=== PATIENT | female | born 1970 | race American Indian/Alaskan Native ===

== ENCOUNTER 2021-08-24 06:11 | Day surgery (SDC) | payer OTHER ==
[2021-08-24] MEDS ORDERED: SODIUM CHLORIDE 0.9% 500 ML 500 ML IV SCH (07:00)
[2021-08-24 07:12] LABS: Basophils % (Auto) 0.8 % (0.0-1.8); Eosinophils # (Auto) 0.1 K/mm3 (0.0-0.4); Eosinophils % (Auto) 2.7 % (0.0-4.3); Hematocrit 41.4 % (30.3-42.9); Hemoglobin 13.6 gm/dl (10.1-14.3); Lymphocytes # (Auto) 1.8 K/mm3 (1.2-5.4); Lymphocytes % (Auto) 38.1 % (13.4-35.0); Mean Corpuscular HGB Conc 33 % (30-34); Mean Corpuscular Volume 87 fl (79-97); Monocytes # (Auto) 0.4 K/mm3 (0.0-0.8); Monocytes % (Auto) 7.3 % (0.0-7.3); Platelet Count 217 K/mm3 (140-440); Red Blood Count 4.77 M/mm3 (3.65-5.03); Red Cell Distribution Width 14.1 % (13.2-15.2)
[2021-08-24 07:19] LABS: INR 0.97 (0.87-1.13)
[2021-08-24] MEDS ORDERED: HEPARIN/NS 5000 UNIT/500ML 1,000 ML IR ONE (07:50)
[2021-08-24] MEDS ORDERED: LIDOCAINE (2%) 20 MG/1 ML VIAL 20 ML MDV INFILTRATI ONE (07:51)
[2021-08-24] MEDS ORDERED: ASPIRIN EC 325 MG TAB PO SCH (08:00)
[2021-08-24 08:01] LABS: Blood Urea Nitrogen 17 mg/dL (7-17); Calcium 9.8 mg/dL (8.4-10.2); Hemolysis Index 12
[2021-08-24 08:06] LABS: BUN/Creatinine Ratio 24
[2021-08-24] MEDS: MIDAZOLAM 2 MG/2 ML INJ ONE ×2 (08:37→08:45)
[2021-08-24] MEDS: fentaNYL 100 MCG/2 ML INJ ONE ×2 (08:37→08:45)
[2021-08-24] MEDS: VERAPAMIL 5 MG/2 ML INJ ONE ×2 (08:37→08:52)
[2021-08-24] MEDS: HEPARIN 10,000 UNITS/10 ML VIAL ONE ×2 (08:38→08:51)
--- NOTE | 2021-08-24 09:32 | Cardiac Catherization Report ---
DATE OF SERVICE: 08/24/2021 INDICATIONS: The patient is a 51-year-old -[place] female with history of hypertension, obesity, and hyperlipidemia, was having atypical chest pains, particularly at night and had a stress EKG, which was unremarkable, followed by stress nuclear imaging, which was unremarkable. Because of persistent chest pains, the patient is scheduled for cardiac catheterization for definitive diagnosis and treatment. The patient is aware of the procedure, potential complications, and alternatives of therapy available. DESCRIPTION OF PROCEDURE: The patient was brought to the catheterization laboratory in fasting condition. The patient was evaluated for moderate sedation and was felt to be an appropriate candidate for moderate sedation and received IV Versed and fentanyl. Subsequently, the patient was prepared in standard fashion. Local anesthesia was given in the right wrist area and right radial artery puncture was made using 21-gauge arterial puncture needle. Subsequently, 5-Bulgarian slender sheath was introduced. A 5-Bulgarian multipurpose catheter was used to obtain the angiograms of the left ventricle done in ROSA projection followed by using a 5-Bulgarian TIG catheter for obtaining the angiograms of the right and left coronary artery in multiple views. Coronary angiograms were obtained and subsequently catheter and sheath were removed and radial band was applied to obtain hemostasis. The patient was monitored throughout the procedure with EKG monitoring and hemodynamic and pulse oximetry monitoring. The patient at the end of the procedure is breathing normally and communicating normally with no focal deficits. The patient's moderate sedation started at 8:37 a.m. and ended at 9:09 a.m. The patient was transferred to the room in stable condition. No untoward complications were noted. The patient will be monitored for the next few hours and when stable, will be discharged home and will be continued on risk factor modification. Following findings were noted. HEMODYNAMICS: 1. Opening aortic pressure 167/99. Left ventricular pressure 173/32. No gradient across the aortic valve. Left ventriculogram done in ROAS projection using hand injection showed normal sized left ventricle with excellent contractility. There appears to be left ventricular hypertrophy with hyperdynamic left ventricle. Ejection fraction was felt to be greater than 65%. End-diastolic pressure was 32 mmHg. Mitral regurgitation could not be evaluated because of limited amount of dye injected. 2. Right coronary artery is a codominant artery, arises normally from right coronary cusp, angiographically smooth and normal, but tortuous. Similarly, left coronary artery arises normally from left coronary cusp. The left main is very short, immediately dividing into LAD and circumflex branches. Left main, LAD and its branches and circumflex artery and its branches are tortuous, but angiographically smooth and normal. FINAL IMPRESSION: 1. Normal-sized left ventricle with excellent contractility and elevated end diastolic pressure. 2. Normal coronary anatomy with tortuous arteries. 3. Procedure was uncomplicated. 4. At this time, etiology of her chest pain is not clear. Will be continued on risk factor modification. No untoward complications were noted. Findings were explained to the patient in detail. She understands. TID: [id number] RECEIPT: [id number] BOBBY/KATHIE RODRIGUEZ
[2021-08-24 12:26] VITALS: BP 131/76
--- NOTE | 2021-08-24 12:39 | Short Stay Summary ---
Short Stay Documentation Date of service: 08/24/21 - History H&P: obtained from office - Allergies and Medications Current Medications: Allergies Penicillins Allergy (Verified 08/24/21 06:50) Shortness of Breath Home Medications Medication Instructions Recorded Confirmed Last Taken Type Bisoprolol/Hydrochlorothiazide 1 tab PO DAILY 08/24/21 08/24/21 08/23/21 History [Bisoprolol-Hctz 10-6.25 mg Tab] 1 tab Simvastatin [Zocor] 5 mg PO HS 08/24/21 08/24/21 08/23/21 History 5 mg amLODIPine 5 mg PO DAILY 08/24/21 08/24/21 08/23/21 History 5 mg Active Medications Aspirin (Aspirin Ec 325 Mg Tab) 325 mg PO ONCE@0800 SONY Stop: 08/24/21 17:00 Last Admin: 08/24/21 07:18 Dose: 325 mg Documented by: Sodium Chloride (Nacl 0.9% 500 Ml) 500 mls @ 50 mls/hr IV DIRECT SONY Stop: 08/24/21 16:59 Last Admin: 08/24/21 08:03 Dose: 50 mls/hr Documented by: - Physical exam Integumentary: other (dressing clean dry intact no bleed or hematoma) - Brief post op/procedure progress note Date of procedure: 08/24/21 Pre-op diagnosis: chest pain Post-op diagnosis: other (normal coronaies) Anesthesia: local Estimated blood loss: minimal - Disposition Condition at discharge: Good Disposition: 01 HOME / SELF CARE / HOMELESS Short Stay Discharge Plan Activity: advance as tolerated Diet: low fat, low cholesterol, low salt Wound: keep clean and dry, per your surgeon's advice Follow up with: CARMEN TOVAR MD [Staff Physician] - 7 Days Forms: CardCath PCI D/C Instructions
--- NOTE | 2021-08-29 14:16 | Electrocardiograph Report ---
[facility] Test Date: 2021-08-24 Test Time: 07:20:41 Pat Name: DIMA ISLAS Department: Room: Gender: F [employer]: YOAN : 1970 Requested By: NAOMIE NEAL Order Number: [id number] Reading MD: Jeanette Barajas Measurements Intervals [place] Rate: 57 P: 44 MO: 160 QRS: 19 QRSD: 104 T: 21 QT: 432 QTc: 422 Interpretive Statements Sinus rhythm Atrial premature complex Probable left atrial enlargement No previous ECG available for comparison Electronically Signed On 08-29-2021 14:15:52 EDT by Jeanette Barajas
== END 2021-08-24 13:00 | disposition home or self-care (01) ==
LOC: CATHLABREC 06:11
PROVIDERS: ATTEND Internal Medicine
DX: R94.39 Abnormal result of other cardiovascular function study (principal); R07.2 Precordial pain; I10 Essential (primary) hypertension; E78.5 Hyperlipidemia, unspecified; E66.9 Obesity, unspecified; Z79.899 Other long term (current) drug therapy; Z98.890 Other specified postprocedural states
CPT/HCPCS: 36415; 80048; 85025; 85610; 85730; 93005; 93458; 99156; C1887; C1894; J1644; J2250; J3010; J7040; Q9967